=== PATIENT | male | born 2000 | race Native Hawaiian/Other Pacific Islander ===

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

== ENCOUNTER 2021-10-17 15:36 | Emergency (ER) | payer OTHER ==
[~2021-10-17] VITALS: Ht 180.3 cm; Wt 191.4 kg
[2021-10-17] MEDS ORDERED: LEVOFLOXACIN500 MG PO (15:59)
[2021-10-17] MEDS ORDERED: PRED20TA27 PO (15:59)
[2021-10-17 17:50] VITALS: BP 162/87; TEMP 97.8
== END 2021-10-17 17:50 | disposition home or self-care (01) ==
LOC: ED 15:43
DX: S10.83XA Contusion of other specified part of neck, initial encounter (principal); S10.81XA Abrasion of other specified part of neck, initial encounter; V49.40XA Driver injured in collision with unspecified motor vehicles in traffic accident, initial encounter; Y92.89 Other specified places as the place of occurrence of the external cause
CPT/HCPCS: 90471; 90715; 96372; 99283; J1885